=== PATIENT | female | born 2000 | race Caucasian/White ===

== ENCOUNTER → 2020-03-22 16:19 | Outpatient (BNVA) | payer BC, MEDICAID, SELFPAY | PROVIDERS: PCP Nurse Practitioner Family; Visit Provider Family Medicine | DX: Z20.2 Contact with and (suspected) exposure to infections with a predominantly sexual mode of transmission (principal) | CPT/HCPCS: 84450; 87070; 87077; 87184; 87186; 87491; 88175 ==